=== PATIENT | female | born 1995 | race Caucasian/White ===

== ENCOUNTER 2020-04-21 03:15 | Inpatient (IN) | payer MEDICAID ==
[~2020-04-21] VITALS: Ht 160 cm; Wt 63.5 kg
[2020-04-21] MEDS ORDERED: ONDANSETRON HCL/PF 4 MG/2 ML VIAL IVP ONE (03:30)
[2020-04-21] MEDS ORDERED: OCTREOTIDE 50 MCG/ML AMPUL IV ONE (03:30)
[2020-04-21] MEDS ORDERED: IV NS 0.9% 1,000 ML BAG IV ONE (03:30)
[2020-04-21] MEDS ORDERED: PANTOPRAZOLE 80 MG in IV NS 0.9% 100 ML IV ONE (03:30)
--- NOTE | 2020-04-21 03:30 | NUR ---
ANUJ FROM HOME FOR C/O VOMITING BLOOD. PT WAS JUS DISCHARGED FOR THE SAME COMPLAINT STEVE ALMARAZ. PT NOTED W/ ACTIVLY VOMITING BLOOD. APEARS VERY LETHARGIC. WAS ASSISTED TO BED 7 AND PLACED ON A MONITOR . VSS. WILL CONT TO MONITOR ,
[2020-04-21] MEDS ORDERED: PANTOPRAZOLE 40 MG VIAL ONE (03:35)
[2020-04-21] MEDS ORDERED: OCTREOTIDE 100 MCG/ML VIAL ONE (03:36)
[2020-04-21] MEDS ORDERED: ONDANSETRON HCL/PF 4 MG/2 ML VIAL ONE ×2 (03:43→13:52)
[2020-04-21 03:56] LABS: BASOPHILS # (AUTO) 0.1 /CMM (0.0-0.2); BASOPHILS % (AUTO) 0.3 % (0.0-2.0); EOSINOPHILS % (AUTO) 0.4 % (0.0-6.0); HEMATOCRIT 24 % (33-45); HEMOGLOBIN 7.9 g/dL (11.5-14.8); LYMPHOCYTES # (AUTO) 4.7 /CMM (0.8-4.8); LYMPHOCYTES % (AUTO) 21.8 % (20.0-44.0); MEAN CORPUSCULAR HGB CONC 33 g/dl (31.0-36.0); MEAN CORPUSCULAR VOLUME 89 fL (82-100); MONOCYTES # (AUTO) 0.7 /CMM (0.1-1.30); NEUTROPHILS # (AUTO) 16.1 /CMM (1.8-8.9); NEUTROPHILS % (AUTO) 74.5 % (43.0-81.0); PLATELET COUNT (AUTO) 334 /CMM (150-450); RED BLOOD CELL COUNT(AUTO) 2.66 MIL/uL (4.0-5.2); WHITE BLOOD COUNT (AUTO) 21.7 K/uL (4.3-11.0)
--- NOTE | 2020-04-21 04:02 | NUR ---
COVID SWAB COLLECTED, CALLED LAB FOR GEAR GENERATOR SET UP OPERATOR
[2020-04-21 04:06] LABS: CALCIUM, SERUM 8.4 mg/dL (8.5-10.1); CARBON DIOXIDE 24 mmol/L (21-32); CHLORIDE 104 mmol/L (98-107); CREATININE 1.2 mg/dL (0.6-1.3); GLUCOSE 195 mg/dL (74-106); POTASSIUM 3.1 mmol/L (3.5-5.1); SODIUM SERUM 141 mmol/L (136-145); UREA NITROGEN, BLOOD 18 mg/dL (7-18)
[2020-04-21 04:12] LABS: ALANINE AMINOTRANSFERASE 17 U/L (12-78); ALKALINE PHOSPHATASE 65 U/L (46-116); ASPARTATE AMINOTRANSFERASE 15 U/L (15-37); BILIRUBIN,TOTAL 0.2 mg/dL (0.2-1.0); LIPASE 111 U/L (73-393); TOTAL PROTEIN, SERUM 6.4 g/dL (6.4-8.2)
[2020-04-21] MEDS ORDERED: POTASSIUM CL. PREMIX PERIPHER. 50 ML ONE (04:18)
[2020-04-21] MEDS ORDERED: IV LR 1000 ML 1,000 ML IV ONE (04:30)
[2020-04-21] MEDS ORDERED: POTASSIUM CL. PREMIX PERIPHER. 50 ML IV ONE (04:30)
--- NOTE | 2020-04-21 04:54 | NUR ---
DR. BARRERA PAGED PER ER ORDER.
--- NOTE | 2020-04-21 06:01 | NUR ---
1 UNIT OF PRBC STARTED AT 0600 BP- 94/69 RESP- 11 PULSE 78 TEMP 98.4 SAT 100%
--- NOTE | 2020-04-21 07:09 | NUR ---
ABHINAV (STEP MOTHER) CONTACT INFORMATION: [phone]
--- NOTE | 2020-04-21 08:12 | NUR ---
PSYCHIATRIC CALLED [facility] GR[facility]ER PAGED ADRIAN.
--- NOTE | 2020-04-21 12:05 | NUR ---
PT AMBUALTORY W. STEADY GAIT. WILL BE TAKEN TO OR FOR EGD PROCEDURE. STABLE VITALS.
--- NOTE | 2020-04-21 12:15 | NUR ---
PT TO OR VIA GURNEY FOR EGD PROCEDURE.
[2020-04-21] MEDS ORDERED: EPINEPHRINE (1:10,000) SYRINGE 1 MG/10 ML DISP.SYRIN ONE (12:46)
[2020-04-21] MEDS ORDERED: HYDROMORPHONE 1 MG/1 ML DISP.SYRIN ONE (14:08)
--- NOTE | 2020-04-21 14:40 | NUR ---
RN-NOTES ADMITTED 24 Y.O FEMALE PATIENT FROM OR. PATIENT WAS BROUGHT IN BY OR STAFF VIA HOSPITAL BED. PATIENT WAS SLEEPING WITH BREATHING EVEN AND NONLABORED EASILY AWAKE.. VITAL SIGN BP 109/66,PULSE 79,RESP. 18 AND 98% RA. CALL LIGHT WITHIN REACH.
--- NOTE | 2020-04-21 15:00 | NUR ---
RN- NOTES DR. PATTON MADE AWARE OF THE ADMISSION,STILL AWAITING FOR ORDERS.
--- NOTE | 2020-04-21 19:51 | NUR ---
Met with patient at bedside, she is alert and pleasant. States she lives locally alone. 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 She has no pcp, she was advised to f/u with local [facility] to establish pcp. She plan to stay at her mother's home upon discharge. Addendum: 04/21/20 at 1951 by WONG LOPEZ RN Amended: Links added.
--- NOTE | 2020-04-21 21:00 | NUR ---
MS RN OPENING NOTES: RECEIVED PATIENT FROM DAY SHIFT NURSE. WITH REPORT TO FOLLOW WITH MD FOR ADMITTING ORDERS. DR. CAMPBELL MADE AWARE BY DIGITAL CONTENT COORDINATOR- YAIMA (INITIALLY)- HE REPLIED WITH A MESSAGE TO PUT IN ORDER A MED SURG ADMISSION. ORDER THEN PLACED BY DIGITAL CONTENT COORDINATOR. BRICK POINTER THEN FOLLOWED UP WITH DR. RODRIGUEZ FOR FURTHER ADMISSION ORDERS-, HE FURTHER GAVE ORDER FOR MAALOX 30 ML Q6HR PRN OF THIS TIME. WILL CONTINUE TO MONITOR THIS PATIENT FOR BLEEDING OR ANY OTHER COMPLAINS.
--- NOTE | 2020-04-21 21:00 | NUR ---
RN -NOTES PATIENT AWAKE,ALERT LAYING IN BED,NO ACUTE DISTRESS NOTED. NO BLEEDING NOTED.. ALL NEEDS ATTENDED AND ANTICIPATED CALL LIGHT WITHIN REACH. ENDORSE TO INCOMING NURSE FOR CONTINUITY OF CARE. Addendum: 04/21/20 at 2119 by RANDALL ECHAVARRIA RN ENDORSE TO INCOMING NURSE FOR FOLLOW UP WITH ADMITTING MD FOR ORDERS.
[2020-04-21] MEDS ORDERED: MAG HYDROX/AL HYDROX/SIMETH 30 ML UDC PO PRN (21:30)
[2020-04-21 22:43] VITALS: BP 101/58
[2020-04-22] VITALS (7 sets, daily range): BP systolic 94–109; BP diastolic 47–60
--- NOTE | 2020-04-22 05:44 | NUR ---
MS RN CLOSING NOTES: PATIENT IN THE ROOM, RESTING COMFORTABLY. NO COMPLAINS OF PAIN RO DISCOMFORT THIS TIME. NO DISTRESS NOTED.WILL ENDORSE PATIENT TO DAY SHIFT NURSE.
--- NOTE | 2020-04-22 07:50 | NUR ---
MS/RN Opening note Patient received from energy conservation director. A/O X4, vital signs stable, no fevers noted. No signs of bleeding, per patient no blood noted in urine when voiding. Heplock flushing well with normal saline, no signs of infiltration seen. Safety measures in place, will continue to monitor and ensure safety.
[2020-04-22] MEDS ORDERED: MAGNESIUM HYDROXIDE 30 ML UDC PO PRN (08:30)
[2020-04-22] MEDS ORDERED: MAG HYDROX/AL HYDROX/SIMETH 30 ML UDC PO PRN (08:30)
[2020-04-22] MEDS ORDERED: HYDROCODONE/APAP 5/325MG TABLET PO PRN (08:30)
[2020-04-22] MEDS ORDERED: IV NS 0.9% 1,000 ML IV PRN (08:30)
[2020-04-22] MEDS ORDERED: Z GUARD REMEDY 2 OZ OINT TP PRN (08:30)
[2020-04-22] MEDS ORDERED: ONDANSETRON HCL/PF 4 MG/2 ML VIAL IVP PRN (08:30)
[2020-04-22] MEDS ORDERED: ACETAMINOPHEN 325 MG TABLET PO PRN (08:30)
--- NOTE | 2020-04-22 08:50 | NUR ---
MS/RN S/B Dr Lanier Seen by MD - diet to be changed to soft, if able to tolerate can be discharged to home this afternoon. Has prescription at home already for protonix.
[2020-04-22] MEDS ORDERED: PANTOPRAZOLE 40 MG VIAL IV SCH (09:00)
[2020-04-22 09:17] LABS: BASOPHILS % (AUTO) 0.1 % (0.0-2.0); LYMPHOCYTES # (AUTO) 3.6 /CMM (0.8-4.8); LYMPHOCYTES % (AUTO) 18.2 % (20.0-44.0); MEAN CORPUSCULAR HGB CONC 34 g/dl (31.0-36.0); MEAN CORPUSCULAR VOLUME 86 fL (82-100); MONOCYTES # (AUTO) 1.3 /CMM (0.1-1.30); MONOCYTES % (AUTO) 6.9 % (2.0-12.0); NEUTROPHILS # (AUTO) 14.7 /CMM (1.8-8.9); NEUTROPHILS % (AUTO) 74.8 % (43.0-81.0); PLATELET COUNT (AUTO) 260 /CMM (150-450); RED BLOOD CELL COUNT(AUTO) 2.28 MIL/uL (4.0-5.2); WHITE BLOOD COUNT (AUTO) 19.6 K/uL (4.3-11.0)
[2020-04-22 09:32] LABS: HEMATOCRIT 20 % (33-45); HEMOGLOBIN 6.6 g/dL (11.5-14.8)
--- NOTE | 2020-04-22 09:38 | NUR ---
MS/RN H&H H&H 6.10/23 Dr Lanier made aware, discharge for today canceled, one unit PRBC ordered.
--- NOTE | 2020-04-22 12:44 | NUR ---
RN NOTES PT STARTED ON BLOOD TRANSFUSION OF PRBC X 1BAG, 343 ML. WILL MONITOR FOR ANY ADVERSE/ALLERGIC REACTIONS.
[2020-04-22 14:53] LABS: CREATININE 0.8 mg/dL (0.6-1.3); POTASSIUM 3.7 mmol/L (3.5-5.1)
[2020-04-22] MEDS ORDERED: MENTHOL/CETYLPYRD (CEPACOL) 1 LOZ LOZENGE PO PRN (15:30)
--- NOTE | 2020-04-22 16:09 | NUR ---
RN NOTES BLOOD TRANSFUSION OF PRBC X1 DONE. NO ALLERGIC/ADVERSE REACTIONS NOTED. V/S TAKEN AND RECORDED. WILL CONTINUE TO MONITOR.
--- NOTE | 2020-04-22 18:29 | NUR ---
CHANGE OF SHIFT REPORT PT RESTING COMFORTABLY IN BED. NO S/S OR C/O PAIN OR DISTRESS NOTED. SIDERAILS UP X2,CALL LIGHT LEFT WITHIN REACH. PT KEPT CLEAN, DRY, AND COMFORTABLE. NO SIGNIFICANT CHANGES SINCE PREVIOUS SHIFT. WILL GIVE REPORT TO CHACHO CASE.
--- NOTE | 2020-04-22 20:08 | NUR ---
MS RN Note: Received pt. from day shift nurse. Resting comfortably in bed. no acute distress noted. no pain or sob. will continue to monitor.
[2020-04-22] MEDS: PANTOPRAZOLE 40 MG VIAL IV SCH (21:32)
--- NOTE | 2020-04-23 06:15 | NUR ---
MS RN CLOSING Note: Pt. sleeping in bed. no acute distress noted. no pain or sob. all needs attended. call light within reach. bed in low and locked position. 2 side rails up will endorse to day shift nurse
[2020-04-23 07:54] LABS: BASOPHILS % (AUTO) 0.3 % (0.0-2.0); EOSINOPHILS % (AUTO) 0.7 % (0.0-6.0); HEMATOCRIT 23 % (33-45); HEMOGLOBIN 7.7 g/dL (11.5-14.8); LYMPHOCYTES # (AUTO) 3.9 /CMM (0.8-4.8); LYMPHOCYTES % (AUTO) 25.8 % (20.0-44.0); MEAN CORPUSCULAR HGB CONC 34 g/dl (31.0-36.0); MEAN CORPUSCULAR VOLUME 87 fL (82-100); MONOCYTES # (AUTO) 0.9 /CMM (0.1-1.30); NEUTROPHILS # (AUTO) 10.2 /CMM (1.8-8.9); NEUTROPHILS % (AUTO) 67.2 % (43.0-81.0); PLATELET COUNT (AUTO) 268 /CMM (150-450); RED BLOOD CELL COUNT(AUTO) 2.66 MIL/uL (4.0-5.2); WHITE BLOOD COUNT (AUTO) 15.2 K/uL (4.3-11.0)
[2020-04-23 08:00] VITALS: BP 102/47
[2020-04-23 08:30] LABS: CALCIUM, SERUM 7.7 mg/dL (8.5-10.1); CREATININE 0.7 mg/dL (0.6-1.3); MAGNESIUM 1.9 mg/dL (1.8-2.4); PHOSPHORUS 3.2 mg/dL (2.5-4.9)
[2020-04-23] MEDS: PANTOPRAZOLE 40 MG VIAL IV SCH (08:49)
[2020-04-23 09:51] LABS: EOSINOPHILS % (MANUAL) 1 % (0-4); LYMPHOCYTES % (MANUAL) 25 % (16-48); MONOCYTES % (MANUAL) 6 % (0-11.0); NEUTROPHILS % (MANUAL) 68 (42-76)
--- NOTE | 2020-04-23 11:58 | NUR ---
pt discharged home in stable condition, no n/v or bleeding noted. Educated about poc, heplock removed, belongings given. Pt left hospital safely with her mom.
== END 2020-04-23 11:50 | disposition home or self-care (01) | DRG 241 ==
LOC: ER 03:19 → TRANSITION 05:05 → OBSVTOIN 05:05 → MED 15:09
PROVIDERS: ADMIT Internal Medicine; ATTEND Internal Medicine
PROC: 0W3P8ZZ Control Bleeding in Gastrointestinal Tract, Via Natural or Artificial Opening Endoscopic (ICD-10-PCS; principal; 2020-04-21)
PROC: 30233N1 Transfusion of Nonautologous Red Blood Cells into Peripheral Vein, Percutaneous Approach (ICD-10-PCS; 2020-04-21)
DX: K31.82 Dieulafoy lesion (hemorrhagic) of stomach and duodenum (principal); D62 Acute posthemorrhagic anemia; E43 Unspecified severe protein-calorie malnutrition; R73.9 Hyperglycemia, unspecified; Z98.890 Other specified postprocedural states
CPT/HCPCS: 36415; 71045-TC; 80048-TC; 80076-TC; 83690-TC; 83735-TC; 84100-TC; 84484-TC; 84702-TC; 85025-TC; 85385-TC; 85730-TC; 86850-TC; A4217; C9113; G0378; J0171; J0330; J1100; J1170; J2354; J2405; J2704; J2765; J3480; J3490; J7030; J7040; J7120; P9016-BL